=== PATIENT | male | born 1970 | race Caucasian/White ===

== ENCOUNTER 2020-09-26 11:11 | Emergency (ER) | payer OTHER ==
[~2020-09-26] VITALS: Ht 180.3 cm; Wt 113.4 kg
[~2020-09-26 11:11] MED LIST: ATENOLOL50 MG PO; CIPRO500 MG PO; COREG12.5 MG PO; HYDROCHLOROTHIA25 MG PO; METFORMIN HCL500 MG PO; PRINIVIL20 MG PO
[2020-09-26 12:13] LABS: BASOPHILS % 0.2 % (0.0-1.0); EOSINOPHILS % 0.4 % (0.0-6.0); HEMATOCRIT 41.4 % (38.2-49.6); HEMOGLOBIN 14.5 g/dL (14.0-18.0); LYMPHOCYTES # (AUTO) 1.7 (1.0-3.2); LYMPHOCYTES % 20.3 % (18.0-39.1); MEAN CORPUSCULAR HEMOGLOBIN 30.5 pg (28-32); MONOCYTES # (AUTO) 0.6 (0.2-0.8); MONOCYTES % 6.9 % (4.4-11.3); NEUTROPHILS # (AUTO) 5.9 (2.1-6.9); NEUTROPHILS % 71.7 % (38.7-80.0); PLATELET COUNT 132 x10e3/uL (140-360); RED BLOOD COUNT 4.76 x10e6/uL (4.3-5.7); RED CELL DISTRIBUTION WIDTH 11.9 % (11.7-14.4)
[2020-09-26 12:32] LABS: ALANINE AMINOTRANSFERASE 22 IU/L (0-55); ALBUMIN 4.3 g/dL (3.5-5.0); ALBUMIN/GLOBULIN RATIO 1.7 (0.8-2.0); ALKALINE PHOSPHATASE 65 IU/L (40-150); ANION GAP 15.8 mmol/L (8-16); BLOOD UREA NITROGEN 9 mg/dL (7-26); BUN/CREATININE RATIO 12 (6-25); CALCIUM 8.8 mg/dL (8.4-10.2); CARBON DIOXIDE 28 mmol/L (22-29); CHLORIDE 99 mmol/L (98-107); CREATINE KINASE 72 IU/L (30-200); CREATININE, SERUM 0.77 mg/dL (0.72-1.25); EST GLOMERULAR FILTRATION RATE > 60 ML/MIN (60-); GLUCOSE 253 mg/dL (74-118); POTASSIUM 3.8 mmol/L (3.5-5.1); SODIUM 139 mmol/L (136-145)
[2020-09-26] MEDS ORDERED: FUROSEMIDE INJ 10 MG/ML 4 ML VIAL IV ONE (13:15)
[2020-09-26] MEDS ORDERED: LASIX40 MG PO (13:51)
[2020-09-26] MEDS ORDERED: KEFLEX125 MG/5 M PO (13:53)
[2020-09-26] MEDS ORDERED: IOPAMIDOL 370 MG/ML 200 ML INFUS..BTL INJ ONE (14:30)
[2020-09-26] MEDS ORDERED: SODIUM CHLORIDE 0.9% 50ML 50 ML ONE (14:30)
== END 2020-09-26 15:04 | disposition home or self-care (01) ==
LOC: ER 11:35
DX: R06.00 Dyspnea, unspecified (principal); I50.9 Heart failure, unspecified; R94.31 Abnormal electrocardiogram [ECG] [EKG]
CPT/HCPCS: 36415; 71045; 71260; 80053; 82550; 82553; 83880; 84484; 85025; 93005; 99284; J1940; Q9967; U0002

== ENCOUNTER 2022-01-04 09:33 | Inpatient (IN) | payer SELFPAY ==
[~2022-01-04] VITALS: Ht 180.3 cm; Wt 111.2 kg
[~2022-01-04 09:33] MED LIST changes: +KEFLEX125 MG/5 M PO; +LASIX40 MG PO
[2022-01-04] MEDS ORDERED: ASPIRIN 81 MG CHEW TAB PO STA (10:34)
[2022-01-04] MEDS ORDERED: NITROGLYCERIN 2% OINT 1 GM PKT TOP ONE (10:45)
[2022-01-04 10:56] LABS: AMPHETAMINES SCREEN,URINE NEGATIVE (NEGATIVE); BASOPHILS % 0.6 % (0.0-1.0); BENZODIAZEPINES SCREEN,URINE NEGATIVE (NEGATIVE); EOSINOPHILS % 0.6 % (0.0-6.0); HEMATOCRIT 48.8 % (38.2-49.6); HEMOGLOBIN 16.5 g/dL (14.0-18.0); LYMPHOCYTES # (AUTO) 1.7 (1.0-3.2); LYMPHOCYTES % 23.2 % (18.0-39.1); MEAN CORPUSCULAR HEMOGLOBIN 30.6 pg (28-32); MEAN CORPUSCULAR HGB CONC 33.8 g/dL (31-35); MEAN CORPUSCULAR VOLUME 90.4 fL (81-99); MONOCYTES # (AUTO) 0.6 (0.2-0.8); MONOCYTES % 8.9 % (4.4-11.3); NEUTROPHILS # (AUTO) 4.8 (2.1-6.9); NEUTROPHILS % 66.4 % (38.7-80.0); PHENCYCLIDINE SCREEN,URINE NEGATIVE (NEGATIVE); PLATELET COUNT 180 x10e3/uL (140-360); RED CELL DISTRIBUTION WIDTH 12.2 % (11.7-14.4)
[2022-01-04 10:57] LABS: CLARITY,URINE CLEAR (CLEAR); COLOR,URINE YELLOW (YELLOW); INR 1.13; LEUKOCYTE ESTERASE ,URINE NEGATIVE (NEGATIVE); NITRITE,URINE NEGATIVE (NEGATIVE); PROTEIN,URINE DIPSTICK 2+ (NEGATIVE); PROTHROMBIN TIME 15.5 seconds (11.9-14.5)
[2022-01-04 10:58] LABS: KETONES,URINE NEGATIVE (NEGATIVE); PARTIAL THROMBOPLASTIN TIME 26.6 seconds (23.8-35.5); URINE UROBILINOGEN 1 mg/dL (0.2 - 1)
[2022-01-04 11:06] LABS: ALBUMIN 3.4 g/dL (3.5-5.0); ALBUMIN/GLOBULIN RATIO 1.1 (0.8-2.0); ANION GAP 14.8 mmol/L (8-16); CALCIUM 8.3 mg/dL (8.4-10.2); CREATININE, SERUM 1.07 mg/dL (0.72-1.25); MAGNESIUM 1.4 MG/DL (1.3-2.1); POTASSIUM 3.8 mmol/L (3.5-5.1)
[2022-01-04 11:12] LABS: CREATINE KINASE MB 1.7 ng/mL (0-5.0)
[2022-01-04 11:13] LABS: WBC,URINE (MAN) 0-5 /HPF (0-5)
[2022-01-04 11:14] LABS: BACTERIA,URINE MODERATE /HPF; EPITHELIAL CELLS,URINE FEW /LPF
[2022-01-04] MEDS ORDERED: NITROGLYCERIN 2% OINT 1 GM PKT TOP NR (11:45)
[2022-01-04] MEDS ORDERED: INSULIN REGULAR, HUMAN 100 UNIT/1 ML IV NR (11:45)
[2022-01-04] MEDS ORDERED: FUROSEMIDE INJ 10 MG/ML 4 ML VIAL IV NR (11:45)
[2022-01-04] MEDS ORDERED: Morphine 2mg Syringe 2 MG/ML SYR IV PRN (12:15)
[2022-01-04] MEDS ORDERED: DEXTROSE 50% SYRINGE 50 ML IV PRN (12:15)
[2022-01-04] MEDS ORDERED: ONDANSETRON HCL INJ 2MG/ML 2ML 2 MG/ML VIAL IV PRN (12:15)
[2022-01-04] MEDS ORDERED: ENALAPRILAT IV INJ 1.25 MG/ML VIAL IV ONE (13:50)
[2022-01-04] MEDS ORDERED: HYDRALAZINE HCL 20 MG/ML VIAL IV NR (15:30)
[2022-01-04] MEDS: INSULIN LISPRO 100 UNIT/1 ML 3ML VIAL SQ SCH ×2 (16:23→21:00)
[2022-01-04 16:25] VITALS: BP 183/123
[2022-01-04 16:37] VITALS: BP 165/97
[2022-01-04 17:38] VITALS: BP 165/97
[2022-01-04] MEDS ORDERED: NITROGLYCERIN 2% OINT 1 GM PKT TOP SCH (18:00)
[2022-01-04] MEDS ORDERED: HYDRALAZINE HCL 20 MG/ML VIAL IV PRN (18:00)
[2022-01-04 19:16] LABS: CREATINE KINASE MB 1.7 ng/mL (0-5.0)
[2022-01-04 19:59] VITALS: BP 165/97
[2022-01-04] MEDS: LISINOPRIL 20 MG TAB PO SCH (20:15)
[2022-01-04 20:42] VITALS: BP 173/117
[2022-01-04] MEDS: FUROSEMIDE INJ 10 MG/ML 4 ML VIAL IV SCH (21:00)
[2022-01-05] VITALS: BP 176/120
[2022-01-05 04:00] VITALS: BP 149/101
[2022-01-05 07:23] LABS: BASOPHILS # (AUTO) 0.1 (0.0-0.1); BASOPHILS % 0.6 % (0.0-1.0); EOSINOPHILS # (AUTO) 0.1 (0.0-0.4); EOSINOPHILS % 1.3 % (0.0-6.0); HEMATOCRIT 48.6 % (38.2-49.6); HEMOGLOBIN 16.4 g/dL (14.0-18.0); LYMPHOCYTES # (AUTO) 1.9 (1.0-3.2); LYMPHOCYTES % 22.5 % (18.0-39.1); MEAN CORPUSCULAR HEMOGLOBIN 30.3 pg (28-32); MEAN CORPUSCULAR HGB CONC 33.7 g/dL (31-35); MEAN CORPUSCULAR VOLUME 89.7 fL (81-99); MONOCYTES # (AUTO) 0.7 (0.2-0.8); NEUTROPHILS # (AUTO) 5.5 (2.1-6.9); NEUTROPHILS % 66.4 % (38.7-80.0); PLATELET COUNT 195 x10e3/uL (140-360); RED BLOOD COUNT 5.42 x10e6/uL (4.3-5.7); RED CELL DISTRIBUTION WIDTH 12.1 % (11.7-14.4)
[2022-01-05] MEDS: INSULIN LISPRO 100 UNIT/1 ML 3ML VIAL SQ SCH ×5 (07:30→21:00)
[2022-01-05 07:48] LABS: ALBUMIN 3.1 g/dL (3.5-5.0); ANION GAP 14.4 mmol/L (8-16); CALCIUM 8.4 mg/dL (8.4-10.2); CHOL/HDL RATIO 4.6 (3.9-4.7); CREATININE, SERUM 0.79 mg/dL (0.72-1.25); POTASSIUM 3.4 mmol/L (3.5-5.1)
[2022-01-05 08:09] VITALS: BP 167/98
[2022-01-05 08:18] LABS: CREATINE KINASE MB 1.6 ng/mL (0-5.0)
[2022-01-05] MEDS: FUROSEMIDE INJ 10 MG/ML 4 ML VIAL IV SCH ×2 (08:22→21:43)
[2022-01-05] MEDS: HYDROCHLOROTHIAZIDE 25 MG TAB PO SCH (08:23)
[2022-01-05] MEDS: ASPIRIN 81 MG ENTERIC COATED PO SCH (08:23)
[2022-01-05] MEDS: LISINOPRIL 20 MG TAB PO SCH ×2 (08:24→15:47)
[2022-01-05 08:42] LABS: MAGNESIUM 1.3 MG/DL (1.3-2.1)
[2022-01-05 09:03] LABS: THYROID STIMULATING HORMONE 2.112 uIU/mL (0.350-4.940)
[2022-01-05] MEDS ORDERED: POTASSIUM CHLORIDE 20 MEQ TAB CR PO ONE (09:30)
[2022-01-05] MEDS ORDERED: MAGNESIUM SULFATE 2GM/50ML 50 ML IV ONE (09:30)
[2022-01-05] MEDS ORDERED: SODIUM CHLORIDE 0.9% 250ML 250 ML ONE (09:32)
[2022-01-05] MEDS: CARVEDILOL 12.5 MG TAB PO SCH ×2 (09:39→15:48)
[2022-01-05] MEDS ORDERED: METOLAZONE 5 MG TAB PO ONE (10:00)
[2022-01-05 19:32] VITALS: BP 141/99
[2022-01-05 20:03] VITALS: BP 150/101
[2022-01-05] MEDS ORDERED: INSULIN GLARGINE 100 UNITS/ML VIAL SQ SCH (21:00)
[2022-01-06] VITALS (8 sets, daily range): BP systolic 111–164; BP diastolic 76–96
[2022-01-06 05:00] LABS: BASOPHILS % 0.5 % (0.0-1.0); EOSINOPHILS # (AUTO) 0.1 (0.0-0.4); EOSINOPHILS % 1.6 % (0.0-6.0); HEMATOCRIT 44.7 % (38.2-49.6); HEMOGLOBIN 15.1 g/dL (14.0-18.0); LYMPHOCYTES # (AUTO) 1.7 (1.0-3.2); LYMPHOCYTES % 26.6 % (18.0-39.1); MEAN CORPUSCULAR HGB CONC 33.8 g/dL (31-35); MEAN CORPUSCULAR VOLUME 88.9 fL (81-99); MONOCYTES # (AUTO) 0.7 (0.2-0.8); MONOCYTES % 11.6 % (4.4-11.3); NEUTROPHILS # (AUTO) 3.8 (2.1-6.9); NEUTROPHILS % 59.4 % (38.7-80.0); PLATELET COUNT 185 x10e3/uL (140-360); RED BLOOD COUNT 5.03 x10e6/uL (4.3-5.7); RED CELL DISTRIBUTION WIDTH 11.9 % (11.7-14.4)
[2022-01-06 05:23] LABS: ALBUMIN 2.9 g/dL (3.5-5.0); ANION GAP 14.1 mmol/L (8-16); CALCIUM 8.3 mg/dL (8.4-10.2); CREATININE, SERUM 0.86 mg/dL (0.72-1.25); MAGNESIUM 1.4 MG/DL (1.3-2.1); POTASSIUM 3.1 mmol/L (3.5-5.1)
[2022-01-06] MEDS ORDERED: MAGNESIUM SULFATE 2GM/50ML 50 ML IV ONE (08:00)
[2022-01-06] MEDS: HYDROCHLOROTHIAZIDE 25 MG TAB PO SCH (08:10)
[2022-01-06] MEDS: ASPIRIN 81 MG ENTERIC COATED PO SCH (08:10)
[2022-01-06] MEDS: FUROSEMIDE INJ 10 MG/ML 4 ML VIAL IV SCH ×2 (08:10→20:51)
[2022-01-06] MEDS: CARVEDILOL 12.5 MG TAB PO SCH ×2 (08:10→16:11)
[2022-01-06] MEDS: INSULIN LISPRO 100 UNIT/1 ML 3ML VIAL SQ SCH ×4 (08:10→20:53)
[2022-01-06] MEDS: LISINOPRIL 20 MG TAB PO SCH ×2 (08:11→16:11)
[2022-01-06] MEDS ORDERED: POTASSIUM CHLORIDE 20 MEQ TAB CR PO ONE (10:00)
[2022-01-06] MEDS ORDERED: METOLAZONE 5 MG TAB PO ONE (10:30)
[2022-01-06] MEDS ORDERED: ONDANSETRON HCL 4 MG ORAL DISINTEGRATING TAB PO PRN (12:30)
[2022-01-06 14:09] LABS: ANION GAP 16.9 mmol/L (8-16); CALCIUM 9.2 mg/dL (8.4-10.2); CREATININE, SERUM 0.98 mg/dL (0.72-1.25); POTASSIUM 3.9 mmol/L (3.5-5.1)
[2022-01-06] MEDS ORDERED: INSULIN GLARGINE 100 UNITS/ML VIAL SQ SCH ×2 (21:00)
[2022-01-07] VITALS: BP 138/76
[2022-01-07 04:00] VITALS: BP 142/96
[2022-01-07 06:36] LABS: CALCIUM 9.3 mg/dL (8.4-10.2); CREATININE, SERUM 0.83 mg/dL (0.72-1.25); MAGNESIUM 1.5 MG/DL (1.3-2.1)
[2022-01-07 08:03] VITALS: BP 118/77
[2022-01-07] MEDS: INSULIN LISPRO 100 UNIT/1 ML 3ML VIAL SQ SCH ×3 (08:31→17:21)
[2022-01-07] MEDS: FUROSEMIDE INJ 10 MG/ML 4 ML VIAL IV SCH (08:32)
[2022-01-07] MEDS: ASPIRIN 81 MG ENTERIC COATED PO SCH (08:32)
[2022-01-07] MEDS: HYDROCHLOROTHIAZIDE 25 MG TAB PO SCH (08:33)
[2022-01-07] MEDS: CARVEDILOL 12.5 MG TAB PO SCH ×2 (08:33→17:22)
[2022-01-07] MEDS: LISINOPRIL 20 MG TAB PO SCH ×2 (08:34→17:22)
[2022-01-07] MEDS ORDERED: MAGNESIUM SULFATE 2GM/50ML 50 ML IV ONE ×2 (08:45→11:00)
[2022-01-07] MEDS ORDERED: POTASSIUM CHLORIDE 20 MEQ TAB CR PO ONE ×2 (08:45→11:00)
[2022-01-07 08:49] VITALS: BP 118/77
[2022-01-07] MEDS ORDERED: MAGNESIUM OXIDE 400 MG TAB PO ONE (09:00)
[2022-01-07 11:25] VITALS: BP 102/81
[2022-01-07 14:53] LABS: MAGNESIUM 1.9 MG/DL (1.3-2.1); POTASSIUM 3.8 mmol/L (3.5-5.1)
[2022-01-07 15:38] VITALS: BP 118/85
[2022-01-07] MEDS ORDERED: COREG12.5 MG PO (16:32)
[2022-01-07] MEDS ORDERED: LISINOPRIL20 MG PO (16:32)
[2022-01-07] MEDS ORDERED: INSULIN SYRING SC (16:32)
[2022-01-07] MEDS ORDERED: POTASSIUM CHLO20 ME1 PO (16:32)
[2022-01-07] MEDS ORDERED: HYDROCHLOROTHIA25 MG PO (16:32)
[2022-01-07] MEDS ORDERED: NOVOLIN N100 UNIT/1 SC (16:32)
[2022-01-07] MEDS ORDERED: LASIX40 MG PO (16:32)
[2022-01-07] MEDS ORDERED: METFORMIN HCL500 MG PO (16:32)
[2022-01-07] MEDS ORDERED: ASPIRIN CHEW81 MG PO (16:32)
[2022-01-07] MEDS ORDERED: INSULIN GLARGINE 100 UNITS/ML VIAL SQ SCH (21:00)
== END 2022-01-07 18:03 | disposition home or self-care (01) | DRG 291 ==
LOC: ER 09:40 → ERHOLD 12:07 → MED/SURG2 15:06
PROVIDERS: ADMIT Internal Medicine; ATTEND Internal Medicine
DX: I11.0 Hypertensive heart disease with heart failure (principal); I50.23 Acute on chronic systolic (congestive) heart failure; E11.65 Type 2 diabetes mellitus with hyperglycemia; E78.5 Hyperlipidemia, unspecified; I16.0 Hypertensive urgency; E66.9 Obesity, unspecified; Z68.34 Body mass index [BMI] 34.0-34.9, adult; Z91.14 Patient's other noncompliance with medication regimen; F12.90 Cannabis use, unspecified, uncomplicated; E87.6 Hypokalemia; E83.42 Hypomagnesemia; Z20.822 Contact with and (suspected) exposure to COVID-19; Z79.82 Long term (current) use of aspirin; Z79.84 Long term (current) use of oral hypoglycemic drugs; Z79.4 Long term (current) use of insulin
CPT/HCPCS: 36415; 71045; 80048; 80053; 80061; 80307; 81001; 82550; 82553; 82948; 83036; 83735; 83880; 84132; 84443; 84484; 85025; 85610; 85730; 93005; 93306; 94799; 96372; 99284; J0360; J1815; J1817; J1940; J3475; J7050; U0002

== ENCOUNTER 2022-07-20 15:01 | Inpatient (IN) | payer SELFPAY ==
[~2022-07-20] VITALS: Ht 177.8 cm; Wt 104.3 kg
[~2022-07-20 15:01] MED LIST changes: +ASPIRIN CHEW81 MG PO; +INSULIN SYRING SC; +LISINOPRIL20 MG PO; +NOVOLIN N100 UNIT/1 SC; +POTASSIUM CHLO20 ME1 PO
[2022-07-20] MEDS ORDERED: INSULIN REGULAR, HUMAN 100 UNIT/1 ML IV ONE (16:00)
[2022-07-20] MEDS ORDERED: SODIUM CHLORIDE 0.9% 1000ML 1,000 ML IV ONE (16:00)
[2022-07-20 16:23] LABS: BASOPHILS % 0.2 % (0.0-1.0); EOSINOPHILS % 0.1 % (0.0-6.0); HEMATOCRIT 38.4 % (38.2-49.6); HEMOGLOBIN 13.2 g/dL (14.0-18.0); LYMPHOCYTES # (AUTO) 1.7 (1.0-3.2); LYMPHOCYTES % 12.5 % (18.0-39.1); MEAN CORPUSCULAR HEMOGLOBIN 29.6 pg (28-32); MEAN CORPUSCULAR HGB CONC 34.4 g/dL (31-35); MEAN CORPUSCULAR VOLUME 86.1 fL (81-99); MONOCYTES # (AUTO) 1.1 (0.2-0.8); MONOCYTES % 8.4 % (4.4-11.3); NEUTROPHILS # (AUTO) 10.5 (2.1-6.9); NEUTROPHILS % 77.9 % (38.7-80.0); PLATELET COUNT 166 x10e3/uL (140-360); RED BLOOD COUNT 4.46 x10e6/uL (4.3-5.7); RED CELL DISTRIBUTION WIDTH 11.2 % (11.7-14.4)
[2022-07-20 16:47] LABS: ALBUMIN 3.7 g/dL (3.5-5.0); ALBUMIN/GLOBULIN RATIO 0.8 (0.8-2.0); ANION GAP 20.7 mmol/L (8-16); CALCIUM 9.7 mg/dL (8.4-10.2); CREATININE, SERUM 1.14 mg/dL (0.72-1.25); POTASSIUM 4.7 mmol/L (3.5-5.1)
[2022-07-20] MEDS: Vancomycin IV 1 GM in SODIUM CHLORIDE 0.9% 250ML 250 ML IV SCH (16:59)
[2022-07-20] MEDS ORDERED: IOPAMIDOL 370 MG/ML 100 ML INFUS..BTL INJ ONE (17:13)
[2022-07-20] MEDS ORDERED: SODIUM CHLORIDE FLUSH 10 ML SYR INJ PRN (18:15)
[2022-07-20] MEDS ORDERED: DEXTROSE 50% SYRINGE 50 ML IV PRN (18:15)
[2022-07-20] MEDS ORDERED: ONDANSETRON HCL INJ 2MG/ML 2ML 2 MG/ML VIAL IV PRN (18:15)
[2022-07-20] MEDS ORDERED: HYDROCODONE/APAP 5MG-325MG TAB PO PRN (18:15)
[2022-07-20 20:40] VITALS: BP 166/87
[2022-07-20] MEDS: INSULIN REGULAR, HUMAN 100 UNIT/1 ML SQ SCH (22:30)
[2022-07-20] MEDS ORDERED: SODIUM CHLORIDE 0.9% 250ML 250 ML ONE (23:42)
[2022-07-21] VITALS (9 sets, daily range): BP systolic 152–184; BP diastolic 85–97
[2022-07-21] MEDS ORDERED: DOCUSATE SODIUM 100 MG CAP PO PRN (01:45)
[2022-07-21] MEDS ORDERED: DEXTROSE 50% SYRINGE 50 ML IV PRN (01:45)
[2022-07-21] MEDS ORDERED: POTASSIUM CHLORIDE 20 MEQ TAB CR PO PRN (01:45)
[2022-07-21] MEDS ORDERED: LIDOCAINE 4% PATCH TP PRN (01:45)
[2022-07-21] MEDS ORDERED: ALBUTEROL/IPRATROPIUM 3 ML NEB NEB PRN (01:45)
[2022-07-21] MEDS ORDERED: DIPHENHYDRAMINE HCL 25 MG CAP PO PRN (01:45)
[2022-07-21] MEDS ORDERED: HYDRALAZINE HCL 20 MG/ML VIAL IV PRN (01:45)
[2022-07-21] MEDS ORDERED: BENZONATATE 100 MG CAP PO PRN (01:45)
[2022-07-21] MEDS ORDERED: MELATONIN 5 MG TABLET PO PRN (01:45)
[2022-07-21] MEDS ORDERED: ACETAMINOPHEN 325 MG TAB PO PRN (01:45)
[2022-07-21] MEDS: Vancomycin IV 1 GM in SODIUM CHLORIDE 0.9% 250ML 250 ML IV SCH ×2 (04:15→16:51)
[2022-07-21 05:51] LABS: BASOPHILS % 0.4 % (0.0-1.0); EOSINOPHILS # (AUTO) 0.1 (0.0-0.4); EOSINOPHILS % 0.5 % (0.0-6.0); HEMATOCRIT 33.5 % (38.2-49.6); HEMOGLOBIN 12.1 g/dL (14.0-18.0); LYMPHOCYTES # (AUTO) 2.1 (1.0-3.2); LYMPHOCYTES % 18.4 % (18.0-39.1); MEAN CORPUSCULAR HEMOGLOBIN 29.9 pg (28-32); MEAN CORPUSCULAR HGB CONC 36.1 g/dL (31-35); MEAN CORPUSCULAR VOLUME 82.7 fL (81-99); MONOCYTES % 8.5 % (4.4-11.3); NEUTROPHILS % 71.4 % (38.7-80.0); PLATELET COUNT 188 x10e3/uL (140-360); RED BLOOD COUNT 4.05 x10e6/uL (4.3-5.7); RED CELL DISTRIBUTION WIDTH 11.5 % (11.7-14.4)
[2022-07-21 06:18] LABS: ANION GAP 15.9 mmol/L (8-16); CALCIUM 9.2 mg/dL (8.4-10.2); CREATININE, SERUM 0.73 mg/dL (0.72-1.25); POTASSIUM 2.9 mmol/L (3.5-5.1)
[2022-07-21] MEDS: INSULIN REGULAR, HUMAN 100 UNIT/1 ML SQ SCH ×4 (07:30→20:52)
[2022-07-21] MEDS: PANTOPRAZOLE SOD 40 MG TABEC PO SCH (08:49)
[2022-07-21] MEDS ORDERED: ENOXAPARIN SOD INJ 40 MG/0.4 ML SYR SC SCH (17:00)
[2022-07-22] VITALS: BP_SYST 165; BP_SYST 175; BP_DIAS 83; BP_DIAS 89
[2022-07-22] MEDS: LISINOPRIL 20 MG TAB PO SCH ×2 (00:15→09:04)
[2022-07-22] MEDS: CARVEDILOL 12.5 MG TAB PO SCH ×2 (00:16→09:04)
[2022-07-22 04:00] VITALS: BP 148/76
[2022-07-22] MEDS: Vancomycin IV 1 GM in SODIUM CHLORIDE 0.9% 250ML 250 ML IV SCH (05:16)
[2022-07-22 06:42] LABS: ANION GAP 17.9 mmol/L (8-16); CALCIUM 8.8 mg/dL (8.4-10.2); CREATININE, SERUM 0.76 mg/dL (0.72-1.25); MAGNESIUM 1.7 MG/DL (1.3-2.1)
[2022-07-22 06:47] LABS: POTASSIUM 2.9 mmol/L (3.5-5.1)
[2022-07-22 06:59] LABS: BASOPHILS % 0.5 % (0.0-1.0); EOSINOPHILS # (AUTO) 0.1 (0.0-0.4); EOSINOPHILS % 0.8 % (0.0-6.0); HEMATOCRIT 33.1 % (38.2-49.6); HEMOGLOBIN 11.1 g/dL (14.0-18.0); LYMPHOCYTES # (AUTO) 1.7 (1.0-3.2); LYMPHOCYTES % 20.6 % (18.0-39.1); MEAN CORPUSCULAR HEMOGLOBIN 29.4 pg (28-32); MEAN CORPUSCULAR HGB CONC 33.5 g/dL (31-35); MONOCYTES # (AUTO) 0.7 (0.2-0.8); MONOCYTES % 8.3 % (4.4-11.3); NEUTROPHILS # (AUTO) 5.8 (2.1-6.9); NEUTROPHILS % 69.4 % (38.7-80.0); RED BLOOD COUNT 3.77 x10e6/uL (4.3-5.7); RED CELL DISTRIBUTION WIDTH 11.4 % (11.7-14.4)
[2022-07-22 07:00] LABS: MEAN CORPUSCULAR VOLUME 87.8 fL (81-99); PLATELET COUNT 282 x10e3/uL (140-360)
[2022-07-22] MEDS ORDERED: POTASSIUM CHLORIDE 20 MEQ TAB CR PO ONE ×2 (07:30→14:00)
[2022-07-22 07:49] VITALS: BP 163/91
[2022-07-22 08:07] VITALS: BP 163/91
[2022-07-22] MEDS: INSULIN REGULAR, HUMAN 100 UNIT/1 ML SQ SCH ×3 (08:40→16:30)
[2022-07-22] MEDS ORDERED: NPH, HUMAN INSULIN ISOPHANE 100 UNIT/1 ML 3ML VIAL SQ SCH (09:00)
[2022-07-22] MEDS ORDERED: CARVEDILOL 12.5 MG TAB PO SCH (09:00)
[2022-07-22] MEDS ORDERED: FUROSEMIDE 40 MG TAB PO SCH (09:00)
[2022-07-22] MEDS ORDERED: LISINOPRIL 20 MG TAB PO SCH (09:00)
[2022-07-22] MEDS ORDERED: ASPIRIN 81 MG CHEW TAB PO SCH (09:00)
[2022-07-22] MEDS ORDERED: HYDROCHLOROTHIAZIDE 25 MG TAB PO SCH (09:00)
[2022-07-22] MEDS: PANTOPRAZOLE SOD 40 MG TABEC PO SCH (09:01)
[2022-07-22 12:44] VITALS: BP 165/79
[2022-07-22] MEDS ORDERED: ONDANSETRON HCL 4 MG ORAL DISINTEGRATING TAB PO PRN (13:15)
[2022-07-22 17:21] VITALS: BP 169/92
[2022-07-22] MEDS ORDERED: CLEOCIN HCL300 MG PO (17:40)
== END 2022-07-22 17:59 | disposition home or self-care (01) | DRG 603 ==
LOC: ER 15:11 → ERHOLD 18:07 → MED/SURG3 21:00
PROVIDERS: ADMIT Internal Medicine; ATTEND Internal Medicine
DX: L03.213 Periorbital cellulitis (principal); L03.211 Cellulitis of face; E66.01 Morbid (severe) obesity due to excess calories; Z91.199 Patient's noncompliance with other medical treatment and regimen due to unspecified reason; I10 Essential (primary) hypertension; Z68.33 Body mass index [BMI] 33.0-33.9, adult; E11.65 Type 2 diabetes mellitus with hyperglycemia; Z20.822 Contact with and (suspected) exposure to COVID-19; Z79.4 Long term (current) use of insulin
CPT/HCPCS: 0223U; 36415; 70481; 80048; 80053; 80061; 80202; 82948; 83036; 83605; 83735; 84132; 85025; 87040; 99284; J0360; J1650; J1817; J2543; J3370; J7030; J7050; Q9967